=== PATIENT | female | born 1990 | race Caucasian/White ===

== ENCOUNTER → 2023-10-29 | Outpatient (CLI) | payer OTHER ==
[~2023-10-29] MED LIST: CLON1TAB12 PO; FLUO-351 PO; OLAN15TA2 PO
[2023-10-30 08:06] LABS: MUMPS VIRUS IGG ANTIBODY 18.9 AU/mL (Immune >10.9); RUBELLA AB IGG-REFLAB 1.74 index (Immune >0.99)
== END | disposition home or self-care (01) ==
LOC: LABMN 13:30
PROVIDERS: ATTEND Internal Medicine
DX: Z02.1 Encounter for pre-employment examination (principal)
CPT/HCPCS: 86706; 86735; 86762; 86765; 86787

== ENCOUNTER → 2023-11-25 | Outpatient (CLI) | payer OTHER ==
[2023-11-26 08:06] LABS: MUMPS VIRUS IGG ANTIBODY 36.2 AU/mL (Immune >10.9); RUBELLA AB IGG-REFLAB 1.78 index (Immune >0.99); RUBEOLA (MEASLES) IGG 92.3 AU/mL (Immune >16.4)
== END | disposition home or self-care (01) ==
LOC: LABMN 08:58
PROVIDERS: ATTEND Internal Medicine
DX: Z02.1 Encounter for pre-employment examination (principal)
CPT/HCPCS: 86706; 86735; 86762; 86765; 86787